=== PATIENT | male | born 1955 | race Caucasian/White ===

== ENCOUNTER 2024-10-27 06:46 | Day surgery (SDC) | payer BC, OTHER ==
[2024-10-27] MEDS ORDERED: propofoL 500 MG/50 ML 50 ML ONE (06:55)
[2024-10-27] MEDS: Lactated Ringers 1,000 ML IV SCH (07:27)
[2024-10-27 08:56] VITALS: BP 103/63; PULSE 58
== END 2024-10-27 08:55 | disposition home or self-care (01) ==
LOC: MW.SDS 06:46
PROVIDERS: ATTEND Surgery
DX: Z12.11 Encounter for screening for malignant neoplasm of colon (principal); D12.6 Benign neoplasm of colon, unspecified; K57.30 Diverticulosis of large intestine without perforation or abscess without bleeding
CPT/HCPCS: 45380; 45385; 88305; J2704; J7120; 00811